=== PATIENT | female | born 1995 | race Caucasian/White ===

== ENCOUNTER 2018-04-14 10:41 | Emergency (ER) | payer BC ==
[2018-04-14] MEDS ORDERED: KETOROLAC 30 MG/1 ML SDV IVP ONE (10:55)
--- NOTE | 2018-04-14 11:17 | EDPHY ---
H & P Time Seen by Provider: 04/14/18 10:54 HPI/ROS: HPI Left flank pain. Left lower abdominal pain. 22-year-old female by private vehicle. She complains of left lower quadrant and left flank abdominal pain onset last night and worsening through today. She thinks she may have had a fever last night as well. She has had some associated nausea but no vomiting. Unknown when her last menstrual period was. She currently has an IUD. Denies any burning or frequency on urination. States that she was treated for urinary tract infection about a month ago. She has had no vaginal bleeding or vaginal discharge. No diarrhea. No bloody or melenic stool. ROS: Constitutional: No fever, no chills. No weakness. Eyes: No discharge. No changes in vision. ENT: No sore throat. No nasal congestion or rhinorrhea. Respiratory: No cough. No shortness of breath. Cardiac: No chest pain, no palpitations. Gastrointestinal: As above, no vomiting, no diarrhea. Genitourinary: No hematuria. No dysuria or increased frequency with urination. Musculoskeletal: As above. No neck pain. No myalgias or arthralgias. Skin: No rashes. Neurological: No headache. No focal weakness or altered sensation. Past medical history: 5 years ago, UTI, IUD. She denies any medication allergies. Social history: Nonsmoker. No alcohol. Here by herself. Physical Exam: General Appearance: Alert, no distress. This patient is responding to questions appropriately and in full sentences. This patient appears well- hydrated and well-nourished. Eyes: Pupils equal and round no pallor or injection. No lid edema, erythema or injection. Respiratory: There are no retractions, lungs are clear to auscultation with good air movement bilaterally. Cardiovascular: Regular rate and rhythm. No murmur. Gastrointestinal: Abdomen is soft with left mid and left lower quadrant tenderness on palpation, no masses, bowel sounds normal. No focal tenderness at McBurney's point. No Henriquez sign. Neurological: Motor sensory function is grossly intact. Cranial nerves are normal. Gait is normal. Skin: Warm and dry, no rashes. Musculoskeletal: Left-sided CVA tenderness on palpation. No right-sided CVA tenderness on palpation. Extremities are symmetrical. All joints range without pain or impingement. Psychiatric: No agitation. No depression. Database: EKG: Imaging: Retroperitoneal ultrasound: Normal left kidney. No hydronephrosis or other significant findings. Results were discussed with staff radiologist Dr. Johanna Clay. Pelvic ultrasound: IUD is properly position. Ovaries are unremarkable. No evidence of torsion or other pathology. Results were discussed with staff radiologist Dr. Johanna Clay. Procedures: Emergency department course: Triage vital signs reviewed. She was borderline tachycardic with a heart rate of 99. Triage vital signs otherwise normal. IV was placed. She has no contraindications to NSAIDs. She will be given 30 mg of IV Toradol after verification of a normal creatinine. She will be started on IV normal saline with 1 L to be given over the next hour. All pelvic ultrasound retroperitoneal ultrasound to be obtained. 1:30 p.m., the patient was re-evaluated. She is much more comfortable after IV Toradol. Results of her emergency department workup discussed with her. She has a mild leukocytosis and trace leukocyte esterase on her urinalysis. Repeat abdominal exam she is soft, nontender nondistended. At this time I feel that a pyelonephritis is unlikely based on results of her urinalysis as well as ultrasound. I have sent her urine for culture and microscopic evaluation to the [facility]. She feels comfortable going home. I will write her a prescription for Keflex to take home. She has been instructed to follow up with her primary care physician on Tuesday. She has been instructed to return to the emergency department for worsening pain, fever, vomiting or other serious concerns. She can fill her prescription for Keflex if she develops a fever or starts having urinary symptoms. She is in agreement with this plan. Return to emergency department precautions were thoroughly reviewed with her. All of her questions were answered. She was discharged from the emergency department in good condition. Differential Diagnosis: The differential diagnosis on this patient includes but is not limited to pyelonephritis, ruptured ovarian cyst. Volvulus, ectopic , diverticulitis unlikely. This represents a partial list of diagnoses considered. These considerations are based on history, physical exam, past history, reassessment and diagnostic testing. Constitutional: Initial Vital Signs Temperature (C) 36.7 C 04/14/18 10:49 Heart Rate 99 04/14/18 10:49 Respiratory Rate 16 04/14/18 10:49 Blood Pressure 100/65 04/14/18 10:49 O2 Sat (%) 95 04/14/18 10:49 O2 Delivery Mode Room Air Allergies/Adverse Reactions: No Known Allergies Allergy (Unverified 04/14/18 10:52) Home Medications: Medication Instructions Recorded Cephalexin [Keflex (*)] 500 mg PO Q6 7 Days cap 04/14/18 Medical Decision Making - Data Points Laboratory Results: 04/14/18 11:34 POC Hgb 13.9 gm/dL gm/dL (12.6-16.3) POC Hct 41 % % (38-47) POC Sodium 139 mEq/L mEq/L (135-145) POC Potassium 3.9 mEq/L mEq/L (3.3-5.0) POC Chloride 103 mEq/L mEq/L (97-110) POC BUN 12 mg/dL mg/dL (7-23) POC Creatinine 0.8 mg/dL mg/dL (0.6-1.0) POC Glucose 99 mg/dL mg/dL (70-100) Medications Given: Discontinued Medications Ketorolac Tromethamine (Toradol) 30 mg IVP EDNOW ONE Stop: 04/14/18 10:56 Last Admin: 04/14/18 12:22 Dose: 30 mg Point of Care Test Results: CBC CBC Collection Date 04/14/18 CBC Collection Time 11:18 WBC 12.0 RBC 4.39 HGB 14.2 HCT 38.7 PLT 218 Neut # 9.2 Neut 76.4 LYMPH # 2.0 LYMPH 16.6 Other WBC # 0.8 Other WBC 7.0 MCV 88.2 Chemistry 04/14/18 11:34 POC Sodium 139 mEq/L mEq/L (135-145) POC Potassium 3.9 mEq/L mEq/L (3.3-5.0) POC Chloride 103 mEq/L mEq/L (97-110) POC BUN 12 mg/dL mg/dL (7-23) POC Creatinine 0.8 mg/dL mg/dL (0.6-1.0) POC Glucose 99 mg/dL mg/dL (70-100) ISTAT H&H 04/14/18 11:34 POC Hgb 13.9 gm/dL gm/dL (12.6-16.3) POC Hct 41 % % (38-47) Urine Collection Date 04/14/18 Collection Time 12:15 HCG Results Negative Urine Dip Collection Date 04/14/18 Collection Time 12:15 Specific [place] (1.002-1.030) 1.020 PH (5.0-7.5) 6.0 Leukocytes (Negative) Trace Nitrites (Negative) Negative Protein (Negative) Negative Glucose (Negative) Negative Ketones (Negative) Negative Urobilnogen (0.2-1.0 EU) 0.2 Bilirubin (Negative) Negative Blood (Negative) Negative Departure - Departure Disposition: Home, Routine, Self-Care Clinical Impression: Abdominal pain, left lower quadrant, Left flank pain Condition: Good Instructions: Acute Abdominal Pain (ED), Flank Pain (ED) Additional Instructions: Read and follow provided instructions. Follow-up with your primary care physician on Tuesday without fail for re- evaluation. You can start taking ibuprofen tonight after 10:00 p.m.. Ibuprofen dosin mg every 6 hours with meals for the next 3 days only. Take only as needed for pain. If you developed a fever, worsening left back pain, urinary symptoms such as burning with urination or increased frequency with urination fill antibiotic prescription and return to the emergency department for evaluation. Return to the emergency department for worsening pain, fever, vomiting or other serious concerns. Referrals: NONE *PRIMARY CARE P,. [Primary Care Provider] - As per Instructions Prescriptions: Cephalexin [Keflex (*)] 500 mg PO Q6 7 Days cap
[2018-04-14 14:05] VITALS: BP 105/74
== END 2018-04-14 13:44 | disposition home or self-care (01) ==
LOC: CED 10:41
DX: R10.32 Left lower quadrant pain (principal); Z87.440 Personal history of urinary (tract) infections; Z97.5 Presence of (intrauterine) contraceptive device
CPT/HCPCS: 76770-PO; 76856-PO; 82435-PO; 82565-PO; 82947-PO; 84132-PO; 84295-PO; 84520-PO; 85014-PO; 96374; J1885